=== PATIENT | female | born 1975 | race Caucasian/White ===

== ENCOUNTER 2017-09-09 14:59 | Emergency (ER) | payer MEDICAID ==
[~2017-09-09] VITALS: Ht 157.5 cm; Wt 72.0 kg
[~2017-09-09 14:59] MED LIST: BACDS PO; CLIN150C8 PO; CLIN300C85 PO; HYDR1TAB PO; NORCO10T PO; VAL5T PO
[2017-09-09 15:16] VITALS: BP 123/77
[2017-09-09] MEDS ORDERED: SULF1TAB49 PO (15:58)
[2017-09-09] MEDS ORDERED: CEPH-572 PO (15:58)
== END 2017-09-09 16:28 | disposition home or self-care (01) ==
LOC: ER 15:00
DX: L02.416 Cutaneous abscess of left lower limb (principal); F15.90 Other stimulant use, unspecified, uncomplicated; Z90.710 Acquired absence of both cervix and uterus; Z79.899 Other long term (current) drug therapy
CPT/HCPCS: 10060; 99283; A6449

== ENCOUNTER 2018-06-01 23:43 | Emergency (ER) | payer MEDICAID ==
[~2018-06-01] VITALS: Ht 158.8 cm; Wt 80.5 kg
[~2018-06-01 23:43] MED LIST changes: +CLIN-96 PO; -CLIN300C85 PO
[2018-06-01 23:47] VITALS: BP 148/88
[2018-06-02] MEDS ORDERED: TETanus/Pertussis (Acell)/Diphther VAC/PF (Tdap-Adult) 0.5ml syringe IM ONE (00:40)
[2018-06-02] MEDS ORDERED: NAPR-56 PO (00:47)
[2018-06-02] MEDS ORDERED: AMOX-419 PO (00:47)
== END 2018-06-02 01:17 | disposition home or self-care (01) ==
LOC: ER 23:43
DX: S41.052A Open bite of left shoulder, initial encounter (principal); S60.221A Contusion of right hand, initial encounter; S50.311A Abrasion of right elbow, initial encounter; F15.90 Other stimulant use, unspecified, uncomplicated; Z98.890 Other specified postprocedural states; Z90.710 Acquired absence of both cervix and uterus; Z98.51 Tubal ligation status; Z79.899 Other long term (current) drug therapy; W54.0XXA Bitten by dog, initial encounter; Y93.89 Activity, other specified; Y92.89 Other specified places as the place of occurrence of the external cause; Y99.9 Unspecified external cause status
CPT/HCPCS: 73130; 90471; 90715; 99283

== ENCOUNTER 2018-10-20 16:05 | Emergency (ER) | payer MEDICAID ==
[~2018-10-20] VITALS: Ht 157.5 cm; Wt 80.0 kg
[~2018-10-20 16:05] MED LIST changes: +LIDOcaine 1% W/epiNEPHrine 1:100,000 20ml vial ONE
[2018-10-20 16:19] VITALS: BP 116/76
[2018-10-20] MEDS ORDERED: SULF1TAB49 PO (18:58)
[2018-10-20] MEDS ORDERED: CEPH500C5 PO (18:58)
== END 2018-10-20 19:13 | disposition home or self-care (01) ==
LOC: ER 16:05
DX: L02.414 Cutaneous abscess of left upper limb (principal); C56.9 Malignant neoplasm of unspecified ovary; F15.90 Other stimulant use, unspecified, uncomplicated; Z90.710 Acquired absence of both cervix and uterus; Z98.51 Tubal ligation status; Z98.890 Other specified postprocedural states; Z88.1 Allergy status to other antibiotic agents; Z79.899 Other long term (current) drug therapy
CPT/HCPCS: 10060; 99283; 99284

== ENCOUNTER 2018-11-07 18:42 | Emergency (ER) | payer MEDICAID ==
[~2018-11-07] VITALS: Ht 157.5 cm; Wt 73.0 kg
[~2018-11-07 18:42] MED LIST changes: -LIDOcaine 1% W/epiNEPHrine 1:100,000 20ml vial ONE
[2018-11-07] MEDS ORDERED: METH500T PO (20:37)
[2018-11-07] MEDS ORDERED: acetaminophen 325mg tablet PO ONE (20:45)
[2018-11-07 21:06] VITALS: BP 133/80
== END 2018-11-07 21:07 | disposition home or self-care (01) ==
LOC: ER 18:43
DX: S60.212A Contusion of left wrist, initial encounter (principal); S40.012A Contusion of left shoulder, initial encounter; S20.212A Contusion of left front wall of thorax, initial encounter; F15.90 Other stimulant use, unspecified, uncomplicated; Z85.43 Personal history of malignant neoplasm of ovary; Z85.3 Personal history of malignant neoplasm of breast; Z90.710 Acquired absence of both cervix and uterus; Z98.890 Other specified postprocedural states; Z98.51 Tubal ligation status; Z90.721 Acquired absence of ovaries, unilateral; Z79.899 Other long term (current) drug therapy; V87.7XXA Person injured in collision between other specified motor vehicles (traffic), initial encounter; Y93.89 Activity, other specified; Y92.89 Other specified places as the place of occurrence of the external cause; Y99.8 Other external cause status
CPT/HCPCS: 71045; 73130; 99283

== ENCOUNTER 2018-12-10 21:27 | Emergency (ER) | payer MEDICAID ==
[~2018-12-10] VITALS: Ht 157.5 cm; Wt 82.0 kg
[~2018-12-10 21:27] MED LIST changes: +CLIN-90 PO; -CLIN-96 PO; +METH500T PO
[2018-12-10 21:33] VITALS: BP 144/93
[2018-12-10 21:46] LABS: CLARITY,URINE CLOUDY (Clear); COLOR,URINE YELLOW (Yellow); GLUCOSE, URINE NEGATIVE (Neg); KETONES,URINE NEGATIVE (Neg); LEUKOCYTE ESTERASE ,URINE SMALL (Neg); NITRITES, URINE POSITIVE (Neg); OCCULT BLOOD,URINE LARGE (Neg); PROTEIN,URINE 100 mg/dl (Neg); UROBILINOGEN,URINE 0.2 E.U/dL (0.2-1.0)
[2018-12-10 21:51] LABS: UA COLLECTION TYPE CLN CATCH MIDSTREAM
[2018-12-10 21:55] LABS: BACTERIA,URINE 3+ /HPF (Neg); RBC,URINE 20-50 /HPF (0-2); SQUAMOUS EPITHELIAL CELL,UR MODERATE /LPF (FEW); WBC,URINE 50-100 /HPF (0-4)
[2018-12-10 21:56] LABS: MUCUS STRANDS FEW /LPF (Neg)
[2018-12-10] MEDS ORDERED: cephalexin 250mg capsule PO ONE (22:30)
[2018-12-10] MEDS ORDERED: CEPH-572 PO (22:33)
== END 2018-12-10 22:45 | disposition home or self-care (01) ==
LOC: ER 21:27
DX: N12 Tubulo-interstitial nephritis, not specified as acute or chronic (principal); F12.90 Cannabis use, unspecified, uncomplicated; Z90.710 Acquired absence of both cervix and uterus; Z98.51 Tubal ligation status; Z98.890 Other specified postprocedural states; Z85.43 Personal history of malignant neoplasm of ovary; Z79.1 Long term (current) use of non-steroidal anti-inflammatories (NSAID); Z79.899 Other long term (current) drug therapy
CPT/HCPCS: 81001; 87077; 87088; 87186; 99283

== ENCOUNTER 2019-02-16 08:11 | Emergency (ER) | payer MEDICAID ==
[~2019-02-16] VITALS: Ht 157.5 cm; Wt 82.0 kg
[2019-02-16 09:00] LABS: CLARITY,URINE TURBID (Clear); COLOR,URINE YELLOW (Yellow); GLUCOSE, URINE NEGATIVE (Neg); KETONES,URINE NEGATIVE (Neg); LEUKOCYTE ESTERASE ,URINE MODERATE (Neg); NITRITES, URINE NEGATIVE (Neg); OCCULT BLOOD,URINE SMALL (Neg); PH,URINE 5.5 (4.8-8.0); PROTEIN,URINE 100 mg/dl (Neg); UROBILINOGEN,URINE 0.2 E.U/dL (0.2-1.0)
[2019-02-16 09:01] LABS: UA COLLECTION TYPE CLN CATCH MIDSTREAM
[2019-02-16 09:02] LABS: URINE HCG NEGATIVE (NEG)
[2019-02-16 09:06] LABS: SQUAMOUS EPITHELIAL CELL,UR MANY /LPF (FEW)
[2019-02-16 09:07] LABS: TRICHOMONAS,URINE FEW /HPF (NEGATIVE)
[2019-02-16 09:08] LABS: BACTERIA,URINE 2+ /HPF (Neg); WBC,URINE TNTC /HPF (0-4)
--- NOTE | 2019-02-16 09:16 | NUR ---
PER PIPER YIN, PT URINE REJECTED FOR CULTURE.
[2019-02-16 09:30] VITALS: BP 123/54
[2019-02-16] MEDS ORDERED: METR-159 PO (09:34)
[2019-02-16] MEDS ORDERED: SULF1TAB49 PO (09:34)
== END 2019-02-16 09:43 | disposition home or self-care (01) ==
LOC: ER 08:12
DX: N39.0 Urinary tract infection, site not specified (principal); A59.9 Trichomoniasis, unspecified; R11.10 Vomiting, unspecified; F15.90 Other stimulant use, unspecified, uncomplicated; F11.90 Opioid use, unspecified, uncomplicated; Z85.89 Personal history of malignant neoplasm of other organs and systems; Z90.49 Acquired absence of other specified parts of digestive tract; Z98.51 Tubal ligation status; Z98.890 Other specified postprocedural states; Z79.2 Long term (current) use of antibiotics; Z79.899 Other long term (current) drug therapy; Z90.710 Acquired absence of both cervix and uterus
CPT/HCPCS: 81001; 81025; 99283; 99284

== ENCOUNTER 2019-02-23 15:24 | Emergency (ER) | payer MEDICAID ==
[~2019-02-23 15:24] MED LIST changes: +METR-159 PO; +SULF1TAB49 PO
== END 2019-02-23 17:13 | disposition left against medical advice (07) ==
LOC: ER 15:25
DX: R50.9 Fever, unspecified (principal); R51 Headache; Z53.21 Procedure and treatment not carried out due to patient leaving prior to being seen by health care provider

== ENCOUNTER 2019-08-20 04:49 | Emergency (ER) | payer MEDICAID ==
[~2019-08-20] VITALS: Ht 157.5 cm; Wt 82.5 kg
[~2019-08-20 04:49] MED LIST changes: -CLIN-90 PO; +CLIN-97 PO; -METR-159 PO; -SULF1TAB49 PO
[2019-08-20 04:51] VITALS: BP 156/97
[2019-08-20] MEDS ORDERED: SULF1TAB49 PO (06:17)
[2019-08-20] MEDS ORDERED: NALO4SPR (06:18)
== END 2019-08-20 06:51 | disposition home or self-care (01) ==
LOC: ER 04:49
DX: L02.416 Cutaneous abscess of left lower limb (principal); F15.10 Other stimulant abuse, uncomplicated; F11.20 Opioid dependence, uncomplicated; F17.200 Nicotine dependence, unspecified, uncomplicated; Z90.710 Acquired absence of both cervix and uterus; Z98.51 Tubal ligation status; Z98.890 Other specified postprocedural states; Z85.43 Personal history of malignant neoplasm of ovary; Z79.2 Long term (current) use of antibiotics; Z79.899 Other long term (current) drug therapy
CPT/HCPCS: 99283

== ENCOUNTER 2019-09-29 13:17 | Emergency (ER) | payer MEDICAID ==
[~2019-09-29] VITALS: Ht 157.5 cm; Wt 75.0 kg
[~2019-09-29 13:17] MED LIST changes: +NALO4SPR
[2019-09-29 13:23] VITALS: BP 139/92
[2019-09-29] MEDS ORDERED: METH-360 PO (14:07)
[2019-09-29] MEDS ORDERED: cyclobenzaprine 10mg tablet PO ONE (14:10)
[2019-09-29] MEDS ORDERED: ketorolac tromethamine 15mg/ml inj. IM ONE (14:10)
== END 2019-09-29 14:24 | disposition home or self-care (01) ==
LOC: ER 13:18
DX: S16.1XXA Strain of muscle, fascia and tendon at neck level, initial encounter (principal); F15.90 Other stimulant use, unspecified, uncomplicated; F11.90 Opioid use, unspecified, uncomplicated; Z90.710 Acquired absence of both cervix and uterus; Z98.51 Tubal ligation status; Z90.721 Acquired absence of ovaries, unilateral; Z98.890 Other specified postprocedural states; Z85.43 Personal history of malignant neoplasm of ovary; Z79.899 Other long term (current) drug therapy; X50.1XXA Overexertion from prolonged static or awkward postures, initial encounter; Y93.89 Activity, other specified; Y92.89 Other specified places as the place of occurrence of the external cause; Y99.8 Other external cause status
CPT/HCPCS: 96372; 99283; J1885

== ENCOUNTER 2019-11-21 00:24 | Emergency (ER) | payer MEDICAID ==
[~2019-11-21] VITALS: Ht 157.5 cm; Wt 77.2 kg
[~2019-11-21 00:24] MED LIST changes: +METH-360 PO
--- NOTE | 2019-11-21 01:38 | NUR ---
[id number] RED INFLAMED ALGAACIQ AROUND ABSCESS
[2019-11-21] MEDS ORDERED: DOXY100C76 PO (02:53)
[2019-11-21] MEDS ORDERED: DOXYCYCLINE 100MG CAPSULE PO ONE (02:55)
[2019-11-21 03:42] VITALS: BP 122/78
== END 2019-11-21 03:52 | disposition home or self-care (01) ==
LOC: ER 00:24
DX: L02.416 Cutaneous abscess of left lower limb (principal); F15.20 Other stimulant dependence, uncomplicated; F17.210 Nicotine dependence, cigarettes, uncomplicated
CPT/HCPCS: 87070; 87077; 87186; 99283

== ENCOUNTER 2021-07-08 10:07 | Emergency (ER) | payer MEDICAID ==
[~2021-07-08] VITALS: Ht 157.5 cm; Wt 90.9 kg
[~2021-07-08 10:07] MED LIST changes: -BACDS PO; +DIAZ5TAB22 PO; +SULF1TAB45 PO; -VAL5T PO
[2021-07-08 10:22] VITALS: BP 138/89
== END 2021-07-08 15:57 | disposition home or self-care (01) ==
LOC: ER 10:07
DX: J32.1 Chronic frontal sinusitis (principal); Z20.822 Contact with and (suspected) exposure to COVID-19; R51.9 Headache, unspecified; R05.9 Cough, unspecified; R53.1 Weakness; F12.90 Cannabis use, unspecified, uncomplicated; F15.90 Other stimulant use, unspecified, uncomplicated; F11.90 Opioid use, unspecified, uncomplicated; Z85.43 Personal history of malignant neoplasm of ovary; Z90.710 Acquired absence of both cervix and uterus; Z98.51 Tubal ligation status; Z98.890 Other specified postprocedural states; Z79.2 Long term (current) use of antibiotics; Z79.899 Other long term (current) drug therapy
CPT/HCPCS: 87635; 99283; C9803

== ENCOUNTER 2022-11-15 22:22 | Emergency (ER) | payer MEDICAID ==
[~2022-11-15] VITALS: Ht 157.5 cm; Wt 89.0 kg
[~2022-11-15 22:22] MED LIST changes: +CLIN-214 PO; -CLIN150C8 PO
[2022-11-15 22:23] VITALS: BP 149/92; PULSE 77; RESP 18; TEMP 98; O2SAT 97
--- NOTE | 2022-11-16 00:29 | NUR ---
PT WANTS TO GO TO [facility] TOM[facility] FOR [facility] ADDI[facility]
[2022-11-16] MEDS ORDERED: buprenorphine/naloxone 2-0.5mg sublingual tablet SL ONE (00:55)
[2022-11-16] MEDS ORDERED: buprenorphine/naloxone 2-0.5mg sublingual tablet SL PRN (01:10)
== END 2022-11-16 01:29 | disposition home or self-care (01) ==
LOC: ER 22:22
DX: F11.10 Opioid abuse, uncomplicated (principal); Z79.2 Long term (current) use of antibiotics; Z79.899 Other long term (current) drug therapy; Z90.710 Acquired absence of both cervix and uterus; Z98.51 Tubal ligation status
CPT/HCPCS: 99283

== ENCOUNTER 2022-11-17 14:05 | Emergency (ER) | payer MEDICAID ==
[~2022-11-17] VITALS: Ht 157.5 cm; Wt 90.0 kg
[2022-11-17 14:10] VITALS: BP 172/101; PULSE 77; RESP 16; TEMP 98.7; O2SAT 97
== END 2022-11-17 20:23 | disposition left against medical advice (07) ==
LOC: ER 14:06
DX: R06.02 Shortness of breath (principal); R11.2 Nausea with vomiting, unspecified; F11.23 Opioid dependence with withdrawal
CPT/HCPCS: 99281

== ENCOUNTER 2024-01-31 00:11 | Emergency (ER) | payer MEDICAID ==
[~2024-01-31] VITALS: Ht 157.5 cm; Wt 94.5 kg
[2024-01-31 01:57] VITALS: BP 128/82; PULSE 92; RESP 18; TEMP 98; O2SAT 98
== END 2024-01-31 02:00 | disposition home or self-care (01) ==
LOC: ER 00:12
DX: Z00.8 Encounter for other general examination (principal); F12.90 Cannabis use, unspecified, uncomplicated; F17.210 Nicotine dependence, cigarettes, uncomplicated; Z85.43 Personal history of malignant neoplasm of ovary; Z90.710 Acquired absence of both cervix and uterus
CPT/HCPCS: 99281

== ENCOUNTER 2024-04-11 09:38 | Emergency (ER) | payer MEDICAID ==
[~2024-04-11] VITALS: Ht 157.5 cm; Wt 95.0 kg
[2024-04-11 09:47] VITALS: BP 155/88; PULSE 96; RESP 18; TEMP 97.5; O2SAT 99
== END 2024-04-11 12:20 | disposition home or self-care (01) ==
LOC: ER 09:39
DX: R51.9 Headache, unspecified (principal); I10 Essential (primary) hypertension; F12.90 Cannabis use, unspecified, uncomplicated; F15.90 Other stimulant use, unspecified, uncomplicated; F11.90 Opioid use, unspecified, uncomplicated; Z90.710 Acquired absence of both cervix and uterus; Z98.51 Tubal ligation status; Z98.890 Other specified postprocedural states
CPT/HCPCS: 70450; 99284

== ENCOUNTER 2024-11-04 20:29 | Emergency (ER) | payer MEDICAID ==
[~2024-11-04] VITALS: Ht 157.5 cm; Wt 92.5 kg
[~2024-11-04 20:29] MED LIST changes: +CLIN-224 PO; -CLIN-97 PO
[2024-11-04 21:38] VITALS: BP 131/86; PULSE 72; RESP 17; O2SAT 98
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
[2024-11-04] MEDS ORDERED: DOXY100C43 PO (22:20)
[2024-11-04 22:34] VITALS: TEMP 98.1
[2024-11-04] MEDS: DOXYCYCLINE 100MG CAPSULE PO STA (22:42)
== END 2024-11-04 22:43 | disposition home or self-care (01) ==
LOC: ER 20:30
DX: L03.011 Cellulitis of right finger (principal); F12.90 Cannabis use, unspecified, uncomplicated; F15.90 Other stimulant use, unspecified, uncomplicated; F11.90 Opioid use, unspecified, uncomplicated; Z79.899 Other long term (current) drug therapy; Z90.710 Acquired absence of both cervix and uterus; Z85.43 Personal history of malignant neoplasm of ovary
CPT/HCPCS: 99283

== ENCOUNTER 2024-11-25 21:02 | Inpatient (IN) | payer MEDICAID ==
[~2024-11-25] VITALS: Ht 157.5 cm; Wt 97.0 kg
--- NOTE | 2024-11-25 21:24 | Physician Documentation ---
History of Present Illness Chief Complaint: Abdominal Pain w/vomiting Stated Complaint: ABD PAIN Time Seen by MD: 21:12 Primary Medical Doctor: ILA TAPIA Mode of Arrival: EMS HPI 49-year-old female presenting with right upper quadrant pain/right-sided chest pain The patient says she has been feeling ill for a couple of days. She reports severe pain in her right upper abdomen and right lower chest. She states it is worse when she takes a deep breath and with palpation. She had a fever. She is coughing up some yellow sputum. She does feel short of breath like it is hard to take a deep breath. She denies recent IV drug use, does not take any pain medications. Denies vomiting or diarrhea. Denies lower abdominal pain. History otherwise somewhat limited because she is in distress Medication Reconciliation Allergies: Coded Allergies: No Known Allergies (Unverified , 11/25/24) Scheduled Clindamycin HCL* (Clindamycin HCL*), 1 CAP PO Q6H Clindamycin HCL* (Clindamycin HCL*), 1 CAP PO Q6H Clindamycin HCl (Clindamycin HCl CAPSULE), 3 CAP PO TID Diazepam* (Valium*), 10 MG PO TID, (Reported) Hydrocodone Bit/Acetaminophen 10/325 MG* ([place] 10/325 MG*), 1 TAB PO Q6H, (Reported) Hydrocodone/Acetaminophen (Vicodin 5-500 Tablet), 1 TAB PO Q6H Methocarbamol (Robaxin), 1 TAB PO Q8H Methocarbamol (Robaxin-750), 1 TAB PO Q8H Naloxone HCl (Narcan), 0.4 MG NA UD Sulfamethoxazole/Trimethoprim (Septra Ds Tab), 1 EACH PO BID Past Medical History Past Medical History: *RENAL/*, *MUSCULOSKELETAL*, Cellulitis, Ovarian Cancer Past Surgical History: , hysterectomy, orthopedic surgeries, tubal ligation, other Other Past Surgical History: oopherectomy Alcohol Use: Rarely Drug Use: marijuana, methamphetamine, heroin Lives with: S/O Lives In: Home Occupation: disabled Review of Systems Constitutional: Reports: fever Respiratory: Reports: cough Cardiovascular: Reports: chest pain Gastrointestinal: Reports: abdominal pain Physical Exam Vital Signs: Temperature: 102.4, Source: Oral, Heart Rate: 93, Respiratory Rate: 22, BP: 148/92, Pulse Oximetry: 98, Weight: 97.000 Physical Exam General: This is an ill-appearing middle-aged woman, moaning in pain and clutching her right side HEENT: Atraumatic, oropharynx dry with cracked lips Heart: Mild tachycardic, appears regular Lungs: Coarse breath sounds bilateral, the patient is splinting and not taking deep breaths, rapid shallow breathing, normal oxygen saturation on room air Abdomen: Soft, tender to palpation diffusely on the right side, worse in the right upper quadrant with some voluntary guarding Extremities: Warm and well-perfused, no significant edema or posterior calf tenderness Neuro: Alert and oriented to self and location Psychiatric: Anxious and in distress, moaning and clutching her side Progress Results/Orders Results/Orders Orders - PETRA SHIELDS MD Electrocardiogram (11/25/24 21:18) Cbc/Diff (11/25/24 21:18) MG (11/25/24 21:18) Urinalysis, Cult If Indicated (11/25/24 21:18) Culture Blood (11/25/24 21:18) Chest,Single View (11/25/24 21:18) Hcg, Ur Ql (11/25/24 21:18) Procalcitonin (11/25/24 21:18) BMP (11/25/24 21:18) Lacticsepsis (11/25/24 21:18) Normal Saline 1,000ml Iv Bolus (11/25/24 21:20) Ketorolac Trometh 15mg/Ml Vial (Toradol (11/25/24 21:20) Morphine 4mg/Ml Inj. (Morphine Inj.) (11/25/24 21:20) Ondansetron Inj. (Zofran 4mg/2ml Vial) (11/25/24 21:20) Vital Signs 11/25/24 11/25/24 21:12 21:16 Temp 102.4 Pulse 93 Resp 22 B/P (MAP) 148/92 Pulse Ox 98 EKG/XRAY/CT/US/VASC/MRI Chest X-Ray : Additional Comments I personally interpreted the x-ray, and it shows: No obvious consolidation, pneumothorax or pulmonary edema CT : Impression I personally interpreted the CT scan, and this shows right lower lobe pneumonia, and dilated gallbladder Ultrasound : Impression Ultrasound of the abdomen shows an impacted stone in the gallbladder neck Consults/PCP Consults/PCP : Additional Comment Consult: I spoke to the internal medicine service, for admission in the hospital Medical Decision Making Additional Comments Differential includes pneumonia, PE, pleurisy, ACS, gallbladder disease, hepatitis, bowel obstruction, dehydration, electrolyte derangement, sepsis Assessment The patient presents with severe right-sided pain. Per her history it is difficult to determine if this is more abdominal pain or chest pain or both. She is in mild distress. An IV was placed and she was given pain medications and IV fluids. Labs returned overall unremarkable. Chest x-ray without obvious pneumonia. CT abdomen shows a distended gallbladder and right lower lobe pn eumonia. She was given antibiotics for pneumonia. An ultrasound was later obtained of her gallbladder which shows an impacted stone in the gallbladder neck. Overall, it appears she has both a pneumonia and gallbladder pain. She will be admitted to the medicine service with plan for surgical consult in the morning. Departure Impression: Primary Impression: Right lower lobe pneumonia Additional Impression: Gallstone (impacted) Referrals: NO PRIMARY CARE PROVIDER (PCP) Signature Scribe Signature: radha Attestation: PETRA Hooks MD Nov 25, 2024 21:24
[2024-11-25] MEDS: morphine 4 MG/ML inj SYRINge IV ONE (21:39)
[2024-11-25] MEDS: ketorolac trometh 15mg/ml vial 15 MG/ML ML IV ONE (21:40)
[2024-11-25] MEDS: normal saline 1000ml 1,000 ML IV ONE (21:40)
[2024-11-25] MEDS: ondansetron/PF 4mg/2ml inj IV ONE (21:40)
--- NOTE | 2024-11-25 21:47 | ELECTROCARDIOGRAPH REPORT ---
[facility] Test Date: 2024-11-25 Test Time: 21:45:58 Pat Name: AMBROSIO CLEARY Department: [facility] Patient ID: [id number] Room: Gender: F [place] Hold: : 1975 Requested By: PETRA SHIELDS Order Number: [id number] Reading MD: Measurements Intervals [place] Rate: 92 P: 70 MA: 166 QRS: 66 QRSD: 83 T: -63 QT: 382 QTc: 473 Interpretive Statements Atrial-paced complexes LAE, consider biatrial enlargement Nonspecific T abnormalities, diffuse leads Please click the below link to view image of tracing.
[2024-11-25 22:04] LABS: CREATININE 0.70 MG/DL (0.40-0.90); TOTAL CARBON DIOXIDE 25.3 MMOL/L (24-32); eCRCL 75 ML/MIN; eGFR 88 ML/MIN
[2024-11-25 22:15] LABS: MEAN PLATELET VOLUME 7.4 FL (7.4-10.4); RED CELL DISTRIBUTION WIDTH 13.5 % (11.5-14.5)
[2024-11-25] MEDS ORDERED: iohexol 300mg/ml 100ml inj. ONE (22:25)
--- NOTE | 2024-11-25 22:41 | RADIOLOGY REPORT ---
CHEST RADIOGRAPH Indication: SEPSIS Technique: Single frontal view of the chest was obtained COMPARISON: None FINDINGS: Lungs and pleural spaces are clear. Cardiac silhouette and veronique are within normal limits. Bones and soft tissues demonstrate no significant abnormality. IMPRESSION: No acute disease.
--- NOTE | 2024-11-25 23:13 | RADIOLOGY REPORT ---
Exam: CT CT ABDOMEN PELVIS W/ IV CONTRAST History: Right upper quadrant pain, severe COMPARISON: None Technique: Multidetector spiral CT of the abdomen and pelvis was performed from lung bases to pubic symphysis. Intravenous contrast was administered during this examination. Portal venous imaging was obtained. Axial, coronal and sagittal multiplanar reformats were performed by the technologist on a separate workstation. Radiation Dose : 1. Abdomen/Pelvis: CTDIvol 25.59 mGy, DLP 14/68.07 mGy*cm. CONTRAST: Type of contrast: Omnipaque 350 Contrast injected: 100 ml Findings: Lung Bases: No acute or significant lung base finding. Normal heart size. No pleural or pericardial effusion. Liver: The liver is normal in size. No focal lesions. Normal hepatic vascular enhancement. Gallbladder and biliary Tree: Gallbladder is distended. No obvious wall thickening or inflammatory changes. CBD appears mildly dilated. Mild prominence of the intrahepatic biliary ducts. Spleen: Unremarkable Pancreas: The pancreas is normal in appearance without focal lesions or abnormal enhancement. Adrenal Glands: Unremarkable Kidneys: No hydronephrosis. Bladder: Unremarkable Bowel: The stomach is grossly normal in appearance. Small bowel and colon are normal in caliber and distribution. Normal appendix is visualized in the right lower quadrant without findings of appendicitis. Ascites: Absent Lymphadenopathy: No mesenteric, retroperitoneal or periportal lymphadenopathy. Abdominal wall and Mesentery: Unremarkable. Vasculature: The visualized abdominal aorta is normal in size and caliber. Abdominal and pelvic vessels demonstrate normal enhancement. Pelvic Organs: Unremarkable Musculoskeletal: No aggressive focal bony lesions, acute fractures or dislocation. IMPRESSION: Right lower lobe airspace disease concerning for pneumonia. Please correlate with any infectious symptoms. Dilated gallbladder and CBD. No obvious mass or stone on CT. Ultrasound recommended to better exclude any obstructing stone. Radiation optimization: All CT scans at this facility use at least one of these dose optimization techniques: automated exposure control mA and/or kV adjustment per patient size (includes targeted exams where dose is matched to clinical indication) or iterative reconstruction.
[2024-11-25] MEDS: CefTRIAXone/D5W-Rocephin 1gm 50 ML IV ONE (23:56)
[2024-11-26] VITALS (17 sets, daily range): BP systolic 88–123; BP diastolic 47–96; PULSE 46–89; RESP 15–24; TEMP 97.5–99.1; O2SAT 3–98
[2024-11-26] MEDS: azithromycin/NS 500mg/250ml 250 ML IV ONE
[2024-11-26] MEDS ORDERED: ondansetron/PF 4mg/2ml inj IV PRN (00:10)
[2024-11-26] MEDS ORDERED: potassium Cl 40MEQ/1/2NS 520ml 520 ML IV PRN (00:10)
[2024-11-26] MEDS ORDERED: magnesium sulf-water 4G/100mL 100 ML IV PRN (00:10)
[2024-11-26] MEDS ORDERED: magnesium hydroxide 30ml (MOM) UD suspension PO PRN (00:10)
[2024-11-26] MEDS ORDERED: mag hydrox/Alum hydrox/simeth 30ml oral suspension PO PRN (00:10)
[2024-11-26] MEDS ORDERED: magnesium Cl slow-release 64mg tablet PO PRN (00:10)
[2024-11-26] MEDS ORDERED: magnesium sulf-water 2g/50mL 50 ML IV PRN (00:10)
[2024-11-26] MEDS ORDERED: potassium Cl 20 mEq SR tablet PO PRN ×2 (00:10)
[2024-11-26] MEDS: normal saline 1000ml 1,000 ML IV SCH ×2 (00:45→03:19)
--- NOTE | 2024-11-26 01:44 | RADIOLOGY REPORT ---
INDICATION: RUQ pain, abnormal CT, eval GB/CBD TECHNIQUE: Multiple real-time sonographic images of the abdomen were obtained. COMPARISON: CT CT ABDOMEN PELVIS W/ IV CONTRAST on DOS: 11/25/24 FINDINGS: Liver is homogenous in echogenicity. The liver measures 20.0 cm with moderate hepatic steatosis. No intrahepatic biliary ductal dilatation is noted. Impacted gallstone in the neck of the gallbladder measuring 1.6 cm. No distension, wall thickening, or surrounding inflammatory changes. The common duct measures 0.6 cm and is unremarkable. The right kidney measures 10.1 cm. No hydronephrosis. The pancreas is not well visualized due to obscuration from bowel gas. The visualized portions of the IVC and aorta are grossly unremarkable. IMPRESSION: Gallstone without acute cholecystitis. Hepatosteatosis with hepatomegaly
[2024-11-26] MEDS ORDERED: ipratropium/albuterol 3ml nebule NEB PRN (02:10)
[2024-11-26] MEDS ORDERED: albuterol 2.5 MG/3 ML nebule NEB PRN (02:10)
--- NOTE | 2024-11-26 02:13 | HISTORY AND PHYSICAL-Residence ---
History & Physical Providers to CC Resident Creating Document: PAPITO KRAUSEJAN ~ History of Present Illness Primary Medical Doctor: ILA TAPIA Reason for Admit\Complaint: Abdominal pain History of Present Illness A 49-year-old female with no known past medical history, no primary care provider, and not on any home medications, who presented to the ED with severe right upper quadrant (RUQ) abdominal pain for the past 2 days. The pain is sharp, constant, severe (10/10), associated with ~5 episodes of nausea and vomiting. She was noted to be drowsy during evaluation, intermittently responsive and dozing off, limiting the history obtained. She denied recent medical care, has no regular medications, and lives at home with friends. On arrival, she was febrile (T 102.4F). Exam was notable for RUQ tenderness. Initial labs showed WBC 14.7 (leukocytosis), normal lactic acid, normal procalcitonin, normal AST/ALT/ALP, normal total bilirubin, and HbA1c 5.7. Imaging: CT chest/abdomen/pelvis: right lower lobe airspace opacity (possible pneumonia), distended gallbladder, dilated CBD. RUQ ultrasound: gallstones with a 1.6 cm impacted stone at the gallbladder neck, CBD 0.6 cm (not dilated), no sonographic evidence of acute cholecystitis. Allergies: Coded Allergies: No Known Allergies (Unverified , 11/25/24) Home Medications Home Medications Active Robaxin-750 (Methocarbamol) 750 Mg Tablet 1 Tab PO Q8H Narcan (Naloxone HCl) 4 Mg Petty 0.4 Mg NA UD Robaxin (Methocarbamol) 500 Mg Tablet 1 Tab PO Q8H Clindamycin HCL* (Clindamycin HCl) 300 Mg Capsule 1 Cap PO Q6H Clindamycin HCl CAPSULE (Clindamycin HCl) 150 Mg Capsule 3 Cap PO TID Clindamycin HCL* (Clindamycin HCl) 300 Mg Capsule 1 Cap PO Q6H Septra Ds Tab (Trimethoprim/Sulfamethoxazole) 1 Each Tablet 1 Each PO BID Vicodin 5-500 Tablet (Acetaminophen/Hydrocodone Bitart) 5 Mg/500 Mg Tablet 1 Tab PO Q6H Reported Valium* (Diazepam) 5 Mg Tablet 10 Mg PO TID [place] 10/325 MG* (Acetaminophen/Hydrocodone Bitart) 10 Mg/325 Mg Tablet 1 Tab PO Q6H Past Medical History Past Medical History Could not be obtained Past Surgical History Surgical History Comment Patient claims she had hysterectomy for possible carcinoma (could not recall) and repair of her Right Rotator Cuff tear However, as patient was extremely drowsy her complete surgical history could not be obtained. Past Social History Smoking: Cigarettes Alcohol Use: Rarely Drug Use: Marijuana, Methamphetamine, Heroin Lives with: S/O Lives In: Home Occupation: disabled ROS ROS Could not be obtained Exam Vitals: Vital Signs Date Time Temp Pulse Resp B/P (MAP) Pulse Ox O2 Delivery O2 Flow Rate FiO2 11/25/24 22:07 99.8 95 16 135/80 (98) 97 General: Drowsy and in apparent distress HEENT: Atraumatic, normocephalic, EOMI, anicteric sclera ; pink conjunctiva Neck: Trachea midline. Supple, full range of motion, no JVD Cardiac: Tachycardic with no murmurs all over the precordium. Respiratory: Diminished breath sounds with mild wheezing present Gastrointestinal: Abdomen symmetric, non-distended, severe tenderness to palpation over the right upper quadrant; overall patient was in severe distress on palpation of all the 9 quadrants. Musculoskeletal: No pedal edema, no cyanosis Neurological: Could not be performed Skin: Warm and dry Diagnostic Data Last Recorded Lab Results: 11/25/24214511/25/242145 Advance Care Planning Advanced Care plannin - 30 Minutes Additional Plan 1. Symptomaticcholelithiasis / impacted gallstone at gallbladder neck RUQ pain + fever + leukocytosis + impacted stone - likely early/atypical acute cholecystitis, even if sonographic signs not classic CBD is normal in size (0.6 cm), making choledocholithiasis less likely Plan: NPO, IV fluids, IV analgesia (avoid morphine if possible; use hydromorphone or NSAID). IV antibiotics: Ceftriaxone + Metronidazole; added Azithromycin for possible pneumonia General Surgery consult in am for laparoscopic cholecystectomy Daily CBC, CMP, LFTs to monitor for biliary obstruction or worsening infection 2.Possible community-acquired pneumonia (RLL opacity on CT) Gram-positive and Gram-negative coverage CT suggests right lower lobe airspace disease; needs correlation with CXR and clinical findings Plan: Continue ceftriaxone + azithromycin DuoNebs q.4h scheduled and albuterol PRN ordered Incentive spirometry ordered. IV methylprednisone 40 mg b.i.d. ordered Monitor oxygenation and symptoms If any signs of clinical decline,escalate antibiotics (Zosyn) 3.Sepsis (fever, leukocytosis, altered mental status) biliary vs pneumonia source Despite normal lactate/procalcitonin, patient meets SIRS criteria and is drowsy Plan: Broad-spectrum IV antibiotics as above. Blood cultures, urine culture Serial vitals and hemodynamic monitoring Trend lactate and procalcitonin tomorrow 2 L IV boluses ordered, NS at 100 cc/hour 4.Altered mental status (drowsiness) Likely multifactorial: fever/sepsis, poor oral intake, possible pneumonia Plan: Monitor mental status closely Embolic contributors like glucose and electrolytes are with a normal limits. Ordered ammonia levels. UTox and ethanol levels ordered Neuro exam and CT head ordered 6.Social situation No PCP, lives with friends. Plan: Case management/social work consult for PCP referral Code Status: full code DVT Prophylaxis: Heparin SQ PT: Ordered Prognosis: Guarded Disposition: Surgery consult in ajudy Krause MD Internal Medicine Resident, PGY-2 Patient was evaluated using HIPPA compliant AV device Agree with plan as discussed with the resident Yesenia Whyte MD Date of Service: Nov 26, 2024 Billing Provider: YESENIA WHYTE MD, GAURAV, [facility] Nov 26, 2024 02:13 YESENIA WHYTE MD Nov 26, 2024 02:58
[2024-11-26] MEDS: normal saline 1000ml 1,000 ML IV ONE ×2 (03:01)
[2024-11-26] MEDS: ipratropium/albuterol 3ml nebule NEB SCH (03:23)
[2024-11-26] MEDS ORDERED: NO HOME MEDS (05:47)
[2024-11-26] MEDS: CefTRIAXone/D5W-Rocephin 1gm 50 ML IV SCH (07:56)
[2024-11-26] MEDS ORDERED: heparin, porcine 5000 units/ml vial SQ SCH (08:00)
[2024-11-26] MEDS ORDERED: K and/or MAG REPLACEMENT MC SCH (08:00)
[2024-11-26] MEDS ORDERED: docusate sod 100mg capsule PO SCH (08:00)
[2024-11-26 08:06] LABS: URINE HCG NEGATIVE (NEG)
[2024-11-26 08:07] LABS: LEUKOCYTE ESTERASE ,URINE NEGATIVE (Neg); NITRITES, URINE NEGATIVE (Neg); OCCULT BLOOD,URINE NEGATIVE (Neg)
[2024-11-26] MEDS ORDERED: HYDROmorphone inj. 0.5 MG/0.5 ML DISP.SYRIN IV PRN (08:10)
[2024-11-26 08:13] LABS: UA COLLECTION TYPE CLN CATCH MIDSTREAM
[2024-11-26 08:16] LABS: MUCUS STRANDS NONE SEEN /LPF (Neg); SQUAMOUS EPITHELIAL CELL,UR MODERATE /LPF (FEW)
[2024-11-26 08:29] LABS: URINE AMPHETAMINE SCREEN POSITIVE (Neg); URINE BARBITUATE SCREEN NEGATIVE (Neg); URINE BENZODIAZEPINES SCREEN NEGATIVE (Neg); URINE CANNABINOID SCREEN POSITIVE (Neg); URINE COCAINE SCREEN NEGATIVE (Neg); URINE METHADONE SCREEN NEGATIVE (Neg); URINE OPIATE SCREEN POSITIVE (Neg); URINE PHENCYCLIDINE SCREEN NEGATIVE (Neg)
[2024-11-26 09:16] LABS: MEAN PLATELET VOLUME 7.5 FL (7.4-10.4); RED CELL DISTRIBUTION WIDTH 13.5 % (11.5-14.5)
[2024-11-26] MEDS: metroNIDAZOLE-Flagyl 500mg/NS 100 ML IV SCH (09:18)
[2024-11-26 09:25] LABS: CREATININE 0.68 MG/DL (0.40-0.90); TOTAL CARBON DIOXIDE 27.5 MMOL/L (24-32); eCRCL 77 ML/MIN; eGFR > 90 ML/MIN
[2024-11-26] MEDS ORDERED: NORMAL SALINE IV ONE (10:10)
[2024-11-26] MEDS ORDERED: SINCALIDE IV ONE (10:10)
[2024-11-26] MEDS: azithromycin/NS 500mg/250ml 250 ML IV SCH (11:02)
--- NOTE | 2024-11-26 12:11 | RADIOLOGY REPORT ---
CT brain without contrast CLINICAL INDICATION: Patient is drowsy and possible encephalopathy Comparison: 11/25/2024 FINDINGS: The study was performed in a multidetector scanner. This study performed taking axial images from the skull base up to the vertex. Both brain and bone windows are photographed. Dose lowering techniques have been used including automated exposure control and adjustment of mA and/or KV according to patient size. Normal and symmetrical shape and density of brain parenchyma above and below the tentorium is seen. There is no mass, midline shift or hydrocephalus. No intra/extra-axial collections demonstrated. There is no intracranial hemorrhage. The calvarium is intact. IMPRESSION: 1. No focal intraparenchymal hemorrhage, hydrocephalus, or midline shift. There is low signal seen in both frontal lobes which may be artifactual. Recommend MRI for further evaluation Computed Tomographic Radiation Dosimetry Report: Total CTDI vol = 59 mGy Total DLP = 1083 mGy-cm All CT scans at this medical facility are performed using dose modulation techniques as appropriate to a performed exam including the following: Automated exposure control was utilized; adjustment of the MA and/or KvP according to patient size; and use of iterative reconstruction technique.
[2024-11-26] MEDS: methylPREDNISolone sod succ/PF 40mg inj. IV SCH (17:16)
--- NOTE | 2024-11-26 18:23 | PROGRESS NOTE ---
Daily Progress Note Providers to CC ~ Antibiotic Timeout Antibiotic Ordered?: Yes Subjective The patient is requesting a diet HIDA scan was not able to be obtained today because the patient received IV Dilaudid- the patient has not received any pain medicine after midnight the patient can eat until midnight and will be NPO after midnight Objective Vital Signs Date Time Temp Pulse Resp B/P (MAP) Pulse Ox O2 Delivery O2 Flow Rate FiO2 11/26/24 15:33 70 20 Nasal Cannula 2.0 11/26/24 15:28 93 28 11/26/24 09:56 99.1 110/80 (90) Result Diagram: 11/26/24 0849 11/26/24 0849 Gen. No acute distress alert and oriented 4 Lungs clear to ascultation bilaterally, no wheezes rales or rhonchi appreciated Heart normal sinus rhythm no murmurs rubs or clicks noted Abdomen soft moderate generalized tenderness greatest at the right upper quadrant bowel sounds are normoactive Lower extremities no clubbing cyanosis, nor edema appreciated bilaterally Problem\Assessment\Plan 1. Symptomaticcholelithiasis / impacted gallstone at gallbladder neck RUQ pain + fever + leukocytosis + impacted stone - likely early/atypical acute cholecystitis, even if sonographic signs not classic CBD is normal in size (0.6 cm), making choledocholithiasis less likely Plan: NPO, IV fluids, IV analgesia (avoid morphine if possible; use hydromorphone or NSAID). IV antibiotics: Ceftriaxone + Metronidazole; added Azithromycin for possible pneumonia Daily CBC, CMP, LFTs to monitor for biliary obstruction or worsening infection I spoke with Dr. Jordan who requested a HIDA scan be ordered this will occur tomorrow since the patient received IV Dilaudid and will be NPO after midnight and no pain medication after midnight 2.Possible community-acquired pneumonia (RLL opacity on CT) Gram-positive and Gram-negative coverage CT suggests right lower lobe airspace disease; needs correlation with CXR and clinical findings Plan: Continue ceftriaxone + azithromycin DuoNebs q.4h scheduled and albuterol PRN ordered Incentive spirometry ordered. IV methylprednisone 40 mg b.i.d. ordered Monitor oxygenation and symptoms If any signs of clinical decline,escalate antibiotics (Zosyn) 3.Sepsis (fever, leukocytosis, altered mental status) biliary vs pneumonia source Despite normal lactate/procalcitonin, patient meets SIRS criteria and is drowsy Plan: Broad-spectrum IV antibiotics as above. Blood cultures, urine culture Serial vitals and hemodynamic monitoring Trend lactate and procalcitonin tomorrow 2 L IV boluses ordered, NS at 100 cc/hour 4.Altered mental status (drowsiness) Likely multifactorial: fever/sepsis, poor oral intake, possible pneumonia Plan: Monitor mental status closely Embolic contributors like glucose and electrolytes are with a normal limits. Ordered ammonia levels. UTox and ethanol levels ordered Head CT scan was negative for any bleed or hydrocephalus however that has a low signal seen in both frontal lobes which may be artifactual. If the patient is mentation worsens then MRI will be obtained 6.Social situation No PCP, lives with friends. Plan: Case management/social work consult for PCP referral Code Status: full code DVT Prophylaxis: Heparin SQ PT: Ordered Prognosis: Guarded Date of Service: Nov 26, 2024 Billing Provider: NICOLA ALBRECHT DO Common Visit Codes: NOT BILLABLE (Admitted after midnight to be billed by maitre d) NICOLA ALBRECHT DO Nov 26, 2024 18:23
[2024-11-27 04:10] VITALS: PULSE 52; RESP 16; O2SAT 93
[2024-11-27 04:16] VITALS: PULSE 47; RESP 16
[2024-11-27 06:23] LABS: MEAN PLATELET VOLUME 8.1 FL (7.4-10.4); RED CELL DISTRIBUTION WIDTH 13.8 % (11.5-14.5)
[2024-11-27 06:39] LABS: CREATININE 0.64 MG/DL (0.40-0.90); TOTAL CARBON DIOXIDE 24.7 MMOL/L (24-32); eCRCL 82 ML/MIN; eGFR > 90 ML/MIN
[2024-11-27 07:05] VITALS: BP 108/63; PULSE 62; RESP 18; TEMP 97.6; O2SAT 90
[2024-11-27 08:34] VITALS: PULSE 67; RESP 16; O2SAT 93
[2024-11-27 08:39] VITALS: PULSE 47; RESP 16
[2024-11-27 09:30] VITALS: BP 106/63; PULSE 58; RESP 13; TEMP 98; O2SAT 93
--- NOTE | 2024-11-27 10:10 | DISCHARGE SUMMARY ---
Discharge Summary Providers to CC ~ Discharge Summary Admission Diagnosis: [facility] DATE OF ADMISSION: 11/26/2024 DATE OF DISCHARGE: Left AMA on 11/27/2024 at 09:52 Discharge Diagnosis\\Comment: Symptomatic cholelithiasis Possible community-acquired pneumonia Sepsis Polysubstance use disorder Operations\\Procedures: None Consultants: Awaiting surgery consult Dr. Jordan Complications: unknown patient left AMA Condition on DC: Unstable Discharge Summary: The patient is admitted by resident physician PAPITO Lawson , under the supervision of YESENIA Emmanuel MD with the following HPI:"A 49-year-old female with no known past medical history, no primary care provider, and not on any home medications, who presented to the ED with severe right upper quadrant (RUQ) abdominal pain for the past 2 days. The pain is sharp, constant, severe (10/10), associated with ~5 episodes of nausea and vomiting. She was noted to be drowsy during evaluation, intermittently responsive and dozing off, limiting the history obtained. She denied recent medical care, has no regular medications, and lives at home with friends. On arrival, she was febrile (T 102.4F). Exam was notable for RUQ tenderness. Initial labs showed WBC 14.7 (leukocytosis), normal lactic acid, normal procalcitonin, normal AST/ALT/ALP, normal total bilirubin, and HbA1c 5.7. Imaging: CT chest/abdomen/pelvis: right lower lobe airspace opacity (possible pneumonia), distended gallbladder, dilated CBD. RUQ ultrasound: gallstones with a 1.6 cm impacted stone at the gallbladder neck, CBD 0.6 cm (not dilated), no sonographic evidence of acute cholecystitis." I spoke to surgeon Dr. Jordan requested HIDA scan be obtained the patient had received IV Dilaudid and thus could not received a HIDA scan on the the patient was given a meal as that was her only request on the afternoon of the and was made NPO after midnight with no opiate medications after midnight to obtain the HIDA scan. I received a page [id number] that the patient was leaving AMA I called up to the surgery floor and the patient had just left AMA at [phone] and was leaving the premises at the time of my call that is I was not able to evaluate the patient prior to the patient leaving AMA. Patient was on metronidazole as well as ceftriaxone to treat her sepsis as well as azithromycin for possible aspiration pneumonia. Blood cultures are negative x2. The patient has a positive drug screen for fentanyl amphetamines and cannabinoids at the time of the admission. The patient left AMA moments after I received a page and I was unable to speak with the patient prior to the patient leaving AMA. *Problems/Diagnosis: (1) Gallstone (impacted) Status: Acute Total Time Spent on D/C: Up to 30 Minutes Date of Service: Nov 27, 2024 Billing Provider: NICOLA ALBRECHT DO Common Visit Codes: NOT BILLABLE (Left AMA prior to being seen) NICOLA ALBRECHT DO Nov 27, 2024 10:07
== END 2024-11-27 09:55 | disposition left against medical advice (07) | DRG 720 ==
LOC: ER 21:03 → ED HOLD 11-26 00:16 → EDBEDREQ 11-26 03:02 → ORTHO 4S 11-26 07:51
PROVIDERS: ADMIT Internal Medicine; ATTEND Family Medicine
PROC: BW211ZZ Computerized Tomography (CT Scan) of Abdomen and Pelvis using Low Osmolar Contrast (ICD-10-PCS; principal; 2024-11-25)
DX: A41.9 Sepsis, unspecified organism (principal); J69.0 Pneumonitis due to inhalation of food and vomit; F11.90 Opioid use, unspecified, uncomplicated; K80.20 Calculus of gallbladder without cholecystitis without obstruction; Z90.710 Acquired absence of both cervix and uterus; Z98.891 History of uterine scar from previous surgery; Z98.51 Tubal ligation status; Z85.43 Personal history of malignant neoplasm of ovary
CPT/HCPCS: 36415; 70450; 71045; 74177; 76700; 80048; 80053; 80076; 80305; 80320; 81001; 81025; 83036; 83605; 83735; 84145; 85025; 87040; 87081; 93005; 94640; 94760; 96365; 96375; 99285; A4615; G0378; J0456; J0696; J1171; J1885; J2270; J2405; J2919; J3490; J7030; Q9967

== ENCOUNTER 2024-12-24 23:09 | Emergency (ER) | payer MEDICAID ==
[~2024-12-24 23:09] MED LIST changes: -CLIN-214 PO; -CLIN-224 PO; -DIAZ5TAB22 PO; -HYDR1TAB PO; -METH-360 PO; -METH500T PO; -NALO4SPR; +NO HOME MEDS; -NORCO10T PO; -SULF1TAB45 PO
--- NOTE | 2024-12-24 23:47 | RADIOLOGY REPORT ---
CLINICAL INDICATION: ANKLE PAIN TECHNIQUE: 3 views DI ANKLE, COMPLETE(3VW MIN) Comparison: None FINDINGS: Oblique, mildly displaced fracture of the lateral malleolus at the level of the ankle syndesmosis. Overlying soft tissue swelling. Lateral tibiotalar subluxation with asymmetric medial ankle mortise widening, and punctate osseous density in the medial clear space. Calcaneal enthesophyte. IMPRESSION: 1. Unstable, mildly displaced right lateral malleolus fracture with evidence of deltoid avulsion. Orthopedics consultation recommended.
[2024-12-25] MEDS ORDERED: NAPR-1166 PO (00:16)
[2024-12-25] MEDS ORDERED: HYDR-3965 PO (00:16)
--- NOTE | 2024-12-25 00:16 | Physician Documentation ---
History of Present Illness General Chief Complaint: Ankle pain Stated Complaint: ANKLE PAIN Time Seen by MD: 23:37 Primary Medical Doctor: ILA TAPIA Mode of Arrival: POV, Ambulatory History of Present Illness Initial Comments This is a 49-year-old homeless female who presents for evaluation of right lower extremity pain after she was going down a hill, slipped, and her leg twisted on nitro early. She felt serious of " pop pop pop with a an immediate onset of sharp nonradiating pain. Pain is worse with ambulation but she was able to ambulate on it for the next 48 hours until she presented to our facility. No particular palliating factors. Bmbo-iid-jrjqtip medications are not helping. Denies any other injury. Medication Reconciliation Allergies: Coded Allergies: No Known Allergies (Unverified , 12/24/24) Miscellaneous Medications Home Med List (No Home Medications), (Reported) Past Medical History Past Medical History: *RENAL/*, *MUSCULOSKELETAL*, Cellulitis, Ovarian Cancer Past Surgical History: , hysterectomy, orthopedic surgeries, tubal ligation, other Other Past Surgical History: oopherectomy Smoking: Cigarettes Alcohol Use: Rarely Drug Use: marijuana, methamphetamine, heroin Lives with: S/O Lives In: Home Occupation: disabled Review of Systems ROS 10 point review of systems was performed and unless noted above in HPI is negative for acute process/complaint. Physical Exam Physical Exam Vital Signs: Temperature: 96.4, Source: Temporal, Heart Rate: 89, Respiratory Rate: 15, BP: 118/60, Pulse Oximetry: 98 Physical Exam Physical examination: GENERAL: Awake, alert, oriented, GCS 15, no apparent distress, non-toxic appearing, answers questions, follows commands appropriately. Examined in bed 4. HEENT: Atraumatic, normocephalic, pupils equal, extraocular muscles intact Active gross movements, sclerae anicteric, mucus membranes moist, no stridor. NECK: Midline, no JVD CARDIOVASCULAR: Good skin perfusion without evidence of pallor, mottling. PULMONARY: Nonlabored, symmetric chest rise, no audible wheezing, no accessory muscle use, no respiratory distress, speaking in full sentences. GASTROINTESTINAL: Not distended. NEUROLOGIC: Lucid with normal mental status. Normal facial symmetry. Moves all extremities symmetrically and with purpose. No truncal ataxia. Speech is fluid without evidence of dysarthria or aphasia, no focal deficits appreciated. EXTREMITIES: Acute deformities Skin: warm, dry PSYCHIATRIC: Normal affect, normal insight, normal concentration. Focused exam: [Significant tenderness to palpation to lateral malleolus, crepitus, swelling and bruising noted. Neurovascularly intact distally.] Progress Results/Orders Results/Orders Orders - RAMU STEVENS DO Ankle, Complete(3vw Min) (12/24/24 23:12) Completed Orders - RAMU STEVENS DO Ankle, Complete(3vw Min) (12/24/24 23:12) Vital Signs 12/24/24 12/24/24 23:11 23:29 Temp 96.4 Pulse 89 Resp 15 15 B/P (MAP) 118/60 Pulse Ox 98 Medical Decision Making Additional information obtaine: other Findings Facility Status: ED H[facility], [facility] process The plan was discussed with the patient, who demonstrates clear understanding of the plan and is in agreement with the plan unless otherwise noted in the chart. All questions have been answered, all concerns were addressed unless otherwise documented. I was available throughout their ED stay for frequent reassessment and questions. Differential Diagnoses (considered and possible or likely): [Ground level fall, acute traumatic pain, right ankle fracture, dislocation, less likely contusion.] ??Differential Diagnoses (considered and unlikely, not requiring evaluation currently): [No evidence of neurovascular injury] MDM Data Please see [facility] for the following: Independent Historians and external Records Review. 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 All vitals signs/haemodynamics, ordered tests were independently reviewed and interpreted by myself. Nursing triage complaint and vitals reviewed, additional nursing notes were reviewed as available and I agree unless otherwise noted or documented in contradiction in the chart Vital Signs: Independently reviewed Labs: Independently interpreted Imaging: Independently interpreted Old Medical Records: Independently reviewed, see [facility] for relevant summary and information Pulse Oximetry: [96%] interpreted as [normal on room air] by me Additionally notably showing: [Hemodynamically stable. On my independent interpretation the x-ray shows right lateral malleolus fracture with a some widening of medial malleolus space. Radiology confirms.] Tests considered but not ordered include: [Hematologic workup has been considered but does not appear to be necessary given mechanical nature of the injury.] Social Determinants of Health Impact: Patient was evaluated in [facility], or [facility] [place] to [facility] due to below par ratio of patient to medical providers. [] Comorbid Conditions Impacting Present Evaluation and Care/Treatment: [Homelessness] Management Discussions with other Healthcare Providers: [None] Treatment and Disposition Medication Management (Given or considered): [Pain management]. See EMR for details Consideration for Hospitalization/Escalation/Deescalation of Care: Admission for observation has been considered, [however the patient is able to tolerate p.o., their symptoms are controlled, they are able to rely on oral medications, and their chief complaint/diagnosis can be managed on outpatient basis.] ?ED Course:?[The patient was placed in the splint] ?Shared decision making:?[Patient is hemodynamically stable for discharge home with follow with their primary care provider. [Referral to Orthopedic surgery was provided. ] Specific and cautious return precautions provided and discussed with full understanding. Any incidental findings were also discussed and follow up recommendations given. [] All questions answered. Patient/family were able to verbalize back return precautions. Patient/family agree to plan. Copies of imaging and laboratory studies were provided.] Code status:?FULL Please see the full Electronic Medical Record for full details of nursing documentation, medications list, other records of complete past medical history and conditions, vital signs, laboratory studies, and any radiologic study interpretations by radiologists. Portions of this note were completed using drag on dictation software and as a result there may exist minor errors in spelling. I have reviewed elements of past family and social history and agree as included in note. Differential Diagnosis See the body of main note Departure Disposition: 01 HOME / SELF CARE / HOMELESS Impression: Primary Impression: Closed right ankle fracture Additional Impressions: Ground-level fall Acute traumatic pain Condition: Stable Discharge Instructions: Ankle Fracture Additional Instructions: Follow-up with the orthopedic surgeon of your choice in the next two days. Do not bear weight on that extremity. Use crutches at all times. Referrals: NO PRIMARY CARE PROVIDER (PCP) Prescriptions Hydrocodone Bit/Acetaminophen 5/325 MG (Jermyn 5/325 MG) 5 Mg/325 Mg Tablet 1 TAB PO Q6H PRN for pain, #14 TAB Prov: RAMU STEVENS DO 12/25/24 Naproxen (Naproxen) 375 Mg Tablet 1 TAB PO Q12H for pain for 30 Days, #60 TAB 0 Refills with food Prov: RAMU STEVENS DO 12/25/24 Education Educated: Patient Educated regarding: diagnosis, treatment, prognosis, need for follow up Signature Scribe Signature: No scribe Attestation: Date: Dec 25, 2024 Time: 00:17 This note accurately reflects clinical decisions, work performed by myself, Ramu Stevens, RAMU FREY DO Dec 25, 2024 00:16
[2024-12-25] MEDS: HYDROcodone/acetaminophen 5mg/325mg tablet PO ONE (01:10)
[2024-12-25 02:07] VITALS: BP 130/89; PULSE 78; RESP 16; TEMP 98.1; O2SAT 99
== END 2024-12-25 02:29 | disposition home or self-care (01) ==
LOC: ER 23:10
DX: S82.61XA Displaced fracture of lateral malleolus of right fibula, initial encounter for closed fracture (principal); G89.11 Acute pain due to trauma; F12.90 Cannabis use, unspecified, uncomplicated; F15.90 Other stimulant use, unspecified, uncomplicated; F11.90 Opioid use, unspecified, uncomplicated; Z90.710 Acquired absence of both cervix and uterus; W18.30XA Fall on same level, unspecified, initial encounter; Y93.89 Activity, other specified; Y92.89 Other specified places as the place of occurrence of the external cause; Y99.8 Other external cause status
CPT/HCPCS: 29515; 73610; 99284; A6449